=== PATIENT | male | born 1960 | race Caucasian/White ===

== ENCOUNTER 2016-11-11 06:11 | Day surgery (SDC) | payer MEDICARE ==
--- NOTE | 2016-11-09 19:42 | PCM.ANEPRE ---
Anesthesia Pre-Op Review Reason for Review: multiple co morbids Anesthesia Recommendations: Delay until Additional Data Obtain Additional Comments 55 y/o male with chronic wound of the right foot scheduled for split thickness skin grafting on 11/11/16. 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 H/o cardiac ablation for atrial flutter. Echo 04/14 showed EF 45-50%. Underwent I& D right foot on 09/03/16 under MAC and local by surgeon with no apparent issues. According to the records the patient went to the [facility] ED on 10/04/16 for orthostatic hypotension resulting in near syncope. He was sent home form the ED but Dr. Hicks with cardiology saw him and wanted him to be seen in clinic [facility]. I cannot find a followup cardiology note. As we do not know the patient's current cardiac status and the radiologic technologist chief wanted him evaluated it is prudent to wait until the patient is cleared by cardiology before surgery. As it is 7:40 PM I am unable to call Dr. Dominique office to ask how urgent this procedure is. Skin grafting is typically quite painful and requires more than MAC and local by the surgeon. Please delay surgery until the patient is assessed by cardiology. Chart Reviewed by: Yoseph Mchugh MD Nov 09, 2016 19:42
--- NOTE | 2016-11-10 12:25 | NUR ---
[facility] Wound Vac Approval Patient is approved for a [facility] home wound vac after surgery. Dr. Dominique will bring one to the OR for placement from the [facility]ound [facility].
[~2016-11-11] VITALS: Ht 182.9 cm; Wt 104.0 kg
[~2016-11-11 06:11] MED LIST: CeFAZolin Inj 2 GM in IV Premix 1 EACH IV ONE; INSLIS SUBQ; INSU100V7 SUBQ; Lactated Ringer's 1,000 ML IV ONE
[2016-11-11] MEDS ORDERED: fentaNYL-PF 50 mCg/mL 2 mL Inj ONE (06:12)
[2016-11-11] MEDS ORDERED: Propofol 10,000 mCg/mL 20 mL Inj ONE (06:12)
[2016-11-11] MEDS: Lactated Ringer's 1,000 ML IV SCH ×3 (06:33→08:23)
[2016-11-11 06:38] VITALS: BP 147/95; PULSE 96; RESP 17; O2SAT 100
[2016-11-11] MEDS ORDERED: WARF5TAB PO (06:44)
--- NOTE | 2016-11-11 07:14 | PCM.HPANE ---
Patient Data Surgeon Admitting Provider: Attending Provider:Shai Dominique DPM Primary Care Physician:Jefferson Hamilton MD Other Provider: Reason for Visit Chronic Wound Right Foot Ht/WT & BMI Height (Feet): 6 Height (Inches): 0 Weight (Kilograms): 104.0 Body Mass Index 31.00 Allergies Coded Allergies: gentamicin (Verified Allergy, Unknown, VERTIGO, 05/06/16) lisinopril (Verified Adverse Reaction, Unknown, 05/06/16) DRY COUGH Past Anesthesia History Anesthesia History: Denies:: Anesthesia Reactions, Fam Anesthesia Reaction, Fam Malignant Hypertherm, Malignant Hyperthermia Diabetes History Hx Diabetes?: Yes Type of Diabetes: Type II Glycemic Control: Insulin & Oral Medication Current Bedside Blood Glucose: 213 MRSA MRSA: No Medications Blood Thinner: Coumadin Last Dose Blood Thinner: Oct 26, 2016 Hypertension Medication: No Home Meds Incl Beta Neil: No Reported Medications Warfarin Sodium (Coumadin)5 Mg Tpiybs40 Mg PO DAILY #30 11/11/16 Insulin Human Lispro (HumaLOG U100 Insulin Vial)100 Unit/Ml Unit5-20 Unit SUBQ prn PRN blood sugar #1 VIAL Ref 0 Check blood sugars before meals and at bedtime. Use correction factor only before meals. Blood Sugar Lispro Correction: <151, 0 units; 151-175, 1 unit; 176-200, 2 units; 201-225, 3 units; 226-250, 4 units; 251-275, 5 units; 276-300, 6 units; 301-325, 7 units; 326-350, 8 units; 351-375, 9 units; 376-400, 10 units; >400, 12 units. 11/09/16 Insulin Glargine (Lantus U100 Insulin Vial)100 Unit/Ml Vial37 Unit SUBQ BID #1 VIAL Ref 0 11/09/16 Discontinued Reported Medications Ubidecarenone (Co Q-10)300 Mg Eplbnso702 Mg PO DAILY 09/03/16 Warfarin Sodium 10 Mg Drregg10 Mg PO DAILY 09/02/16 Insulin Glargine (Lantus U100 Solostar Insulin Pen)100 Unit/1 Ml Insuln.pen30 Unit SUBQ BID 09/02/16 Carvedilol 6.25 Mg Scxyaf12.5 Mg PO BID 03/11/16 Insulin Lispro (HumaLOG U100 Insulin Pen)100 Unit/1 Ml Insuln.pen Unit SUBQ TIDWM per sliding scale 08/11/14 Discontinued Scripts Metronidazole (Flagyl)500 Mg Uqxram600 Mg PO Q8H 35 Days Prov:Adolfo Hernandez DO 09/10/16 Ciprofloxacin (Cipro)500 Mg Cbxpma315 Mg PO q18 hours #46 TABLET Ref 0 take 1 tab orally every 18 hours for 5 weeks. Prov:Adolfo Hernandez DO 09/10/16 Bumetanide 1 Mg Tablet1 Mg PO 0830,16 30 Days Prov:Adolfo Hernandez DO 09/10/16 Atorvastatin Calcium 40 Mg Vsajoi60 Mg PO HS 30 Days Prov:Adolfo Hernandez DO 09/10/16 oxyCODONE 5 Mg Tablet5 Mg PO Q4H PRN For Moderate Pain #30 TABLET Prov:Nesha Owens MD 05/08/16 History History of ENT Problems?: No HEENT History: Denies:: Cataracts Dysphagia Hearing Problem Sinus Problem Hx of Heart Problems?: Yes Cardiovascular History: Positive for:: Cardiac Surgery (cardiac ablation in February 2016 for A-fib) Congestive Heart Failure (cardiac abaltion for A-fib) Edema Irregular Heartbeat (atrial fib with RVR with hospitalization 02/25) Denies:: Chest Pain Heart Murmur Hypertension Pacemaker Thrombophlebitis Hx of Respiratory Problem?: Yes Respiratory History: Positive for:: Dyspnea (exertional) Denies:: Asthma COPD Chest Surgery Emphysema Hemoptysis Oxygen Administration Pneumonia Tuberculosis Use of C-PAP Machine Hx Neurologic Problems?: Yes Neurological History: Positive for:: Dizziness (chronic vertigo) Headaches Denies:: Alzheimer's Disease CVA Dementia Multiple Sclerosis Parkinson's Disease Seizures Hx of GI Problems?: No Gastrointestinal History: Denies:: Cirrhosis Gastroesphageal Reflux Heartburn Hepatitis Hx of Problems?: No Genitourinary History: Denies:: HX of Hemodialysis Kidney Stones HX of Peritoneal Dialysis: No Male Hx: Denies:: Prostate Problems Scrotal Mass Testicular Surgery Skin History: Positive for:: History Skin Disorders? (diabetic wounds on feet reccurring) Denies:: Pressure Ulcers Hx Musculoskeletal Problems?: Yes Musculoskeletal History: Positive for:: Musculoskeletal Trauma (right foot non healing wound- current admission problem) Denies:: Back Injury Joint Replacement Osteoarthritis Hx of Psycho/Social Problems?: No Psycho Social History: Denies:: Anxiety Bipolar Disorder Hx Depression Suicide Attempt Hx Surgeries?: Yes (multiple foot surgeries for diabetic wounds, ) Hx Any Other Health Problems?: Yes Other History: Positive for:: Hospitalization (February 2016 Heart, a-nov; Jul 2015 diabetic ulcer) Denies:: Cancer Endocrine Disease Thyroid Disease History Blood Transfusions: Positive for:: Blood Transfusions Denies:: Blood Transfuse Reaction Hx Diabetes: YesBedside Blood Glucose: 213 Hx Alcohol Use: Yes (1 beer / month)Hx Substance Use: No Smoking Status: Never Smoker Have You Smoked inLast 12 mo: No Stop/Bang P-Blood Pressure: treated: No B- Body Mass Index > 35 kg/m2: No A- Age over 50: Yes N- Neck Large Circumference: No G- Gender Male: Yes CHRISSY Risk Assessment: Low Risk, <3 Yes Risk Assessment Category Category 1A: Patient has history of documented sleep apnea, and HAS NOT received any narcotic, sedative or anesthesia administration during this stay. Category 1B: Patient has history of documented sleep apnea, and HAS received any narcotic , sedative or anesthesia administration during this stay Category 2: Patient has SUSPECTED Obstructive Sleep Apnea, and HAS received any narcotic , sedative or anesthesia administration during this stay. Category 3: Patient has SUSPECTED Obstructive Sleep Apnea and HAS NOT received narcotic, sedative or anesthesia administration during this stay. Category 4: Outpatient in Procedural Areas with known sleep apnea or who screen positive for High Risk via the STOP/BANG questionnaire. Exam Exam Vital Signs Vital Signs Date Time Temp Pulse Resp B/P Pulse Ox O2 Delivery O2 Flow Rate FiO2 11/11/16 06:38 35.9 96 17 147/95 100 Room Air General Appearance: Alert, Oriented X3, Cooperative, No Acute Distress HEENT/AIRWAY: MP 2 Lungs: Clear to Auscultation, Normal Air Movement Heart: Exam Unremarkable, Regular Rate/Rhythm, No Murmurs/Rubs/Gallops Meds/Labs/Diagnostics Admission Meds Current Medications Lactated Ringer's (Lr) 1,000 ml @ 120 mls/hr Q8H20M IV Last administered on t 06:33; Start 11/11/16 at 05:00; Stop 11/11/16 at 13:19 Bedside Blood Glucose: 213 Plan Impression Patient chart reviewed, patient interviewed and anesthestic plan with risks, benefits, and alternatives discussed, and informed consent obtained. NPO Status: 11/10/161999 Anesthetic Plan: MAC Bene/Risks/Altern/Consents: Yes HP Complete Prior to Induction: Yes Carlotta Gonzalez MD Nov 11, 2016 07:14
[2016-11-11] MEDS ORDERED: Lactated Ringer's 1,000 ML IV SCH (07:59)
[2016-11-11] MEDS ORDERED: Lactated Ringer's 500 ML IV PRN (07:59)
[2016-11-11] MEDS ORDERED: Atropine 0.4 mg/mL Inj IVPUSH PRN (08:00)
[2016-11-11] MEDS ORDERED: MetoCLOpramide 5 mg/mL 2 mL Inj IVPUSH PRN (08:00)
[2016-11-11] MEDS ORDERED: Labetalol 5 mg/mL 4 mL Inj IV PRN (08:00)
[2016-11-11] MEDS ORDERED: Phenylephrine 10,000 mCg/mL Inj IVPUSH PRN (08:00)
[2016-11-11] MEDS ORDERED: Dexamethasone 4 mg/mL Inj IVPUSH PRN (08:00)
[2016-11-11] MEDS ORDERED: HYDROmorphone 1 mg/mL Inj IVPUSH PRN (08:00)
[2016-11-11] MEDS ORDERED: EPHEDrine Sulfate 50 mg/mL Inj IVPUSH PRN (08:00)
[2016-11-11] MEDS ORDERED: Ondansetron 2 mg/mL 2 mL Inj IVPUSH PRN (08:00)
[2016-11-11] MEDS ORDERED: fentaNYL-PF 50 mCg/mL 2 mL Inj IVPUSH PRN (08:00)
[2016-11-11] MEDS ORDERED: hydrALAZINE 20 mg/mL Inj IVPUSH PRN (08:00)
[2016-11-11] MEDS ORDERED: Lidocaine 1%-Epi 1:100,000 50 mL Inj INJ ONE (08:05)
[2016-11-11 08:58] VITALS: BP 159/88; PULSE 89; RESP 16; O2SAT 100
[2016-11-11 09:07] VITALS: BP 124/87; PULSE 89; RESP 16; O2SAT 98
--- NOTE | 2016-11-11 09:13 | PCM.ANEP1 ---
Post Anesthesia Phase 1 PACU Phase 1 Assessment Vital Signs Vital Signs Date Time Temp Pulse Resp B/P Pulse Ox O2 Delivery O2 Flow Rate FiO2 11/11/16 09:07 89 16 124/87 98 Room Air 11/11/16 08:58 36.1 89 16 159/88 100 Room Air 11/11/16 06:38 35.9 96 17 147/95 100 Room Air Anesthetic Administered: MAC Level of Alertness: Awake, talking MENDES's with Equal Strength: Yes Nausea or Vomiting: No Oxygen Delivery: Room Air Lungs: Clear to Auscultation, Normal Air Movement Carlotta Gonzalez MD Nov 11, 2016 09:13
--- NOTE | 2016-11-11 09:54 | PCM.ANEP2 ---
Post Anesthesia Evaluation ASA/CMS Post Anesthesia VS in Patient's Normal Range?: Yes Resp Stable; Airway Patent?: Yes CV Function & Hydration Stable: Yes Mental Status Recovered?: Yes Pain control Satisfactory?: Yes N/V Control Satisfactory?: Yes Carlotta Gonzalez MD Nov 11, 2016 09:54
--- NOTE | 2016-11-12 15:36 | OP ---
[address] [address] OPERATIVE REPORT PATIENT: SARAY FARAH : 1960 MR#: [id number] ADMIT: 11/11/2016 JOB ID: [id number] DATE OF SURGERY: 11/11/2016 SURGEON: Shai Dominique DPM PREOPERATIVE DIAGNOSIS(ES): Diabetic ulceration to the right foot. POSTOPERATIVE DIAGNOSIS(ES): Diabetic ulceration to the right foot. PLANNED PROCEDURE: Split-thickness auto skin graft from right calf to right foot. ANESTHESIA: Local and IV sedation. HEMOSTASIS: None. ESTIMATED BLOOD LOSS: Less than 5 mL. COMPLICATIONS: None. PROCEDURE AND FINDINGS: The patient was brought to the operating room and placed on the table in supine position. He was placed under IV sedation, after which I performed a superficial dermatome blockade of the anterior medial right calf. The right lower extremity was prepped and draped in the normal sterile surgical manner. Attention was directed to the plantar aspect of the right foot, where the wound was evaluated and found to be heavily and healthily granular. I used a #zero sharp dermal curette to prepare the surface, removing any biofilm and achieving a good bleeding base all way across the wound surface. This was then measured and the choice was made to secure a 13 x 5 cm split-thickness graft. The dermatome was set to 0.0018 and checked with feeler gauge. I then moistened the area with saline and harvested the graft. It was found to be of good thickness and health. I placed this through the mesher at a 1:1.5 ratio. This was then delivered to the graft recipient site on the foot. I secured it circumferentially with 4-0 Vicryl suture in a running interlocking fashion with minimal knots at the margin. Three anchoring knots placed evenly spaced across the wound face. I then addressed the proximal wound with Marcaine and epinephrine soaked Telfa and secured this with gauze. I placed a wound VAC with black foam directly over the graft recipient site, protecting all intact skin with under VAC drape. The VAC was activated at -125 mmHg pressure and found to be well sealed. No leaks were identified. I then further secured this with Kerlix roll, followed by Daniel bandages from MTPJ to tibial tuberosity, encompassing the graft donor site. The patient had immediate CFT to the forefoot throughout the procedure as no tourniquet was applied. He was transferred from the operating room in stable condition, having tolerated the procedure and anesthetic well. POSTOPERATIVE PLAN: The patient understand that he is to remain nonambulatory and nonweightbearing upon this limb. We did place him in an orthopedic boot. Should he accidentally place pressure on the foot. However, he does have a knee scooter, crutches, and other durable medical devices to provide him the ability to remain compliant. I also reminded him the great importance of maintaining and treating his blood pressure and his blood sugar. Of particular note is the importance of him being compliant with dietary recommendations in regard to his diabetes. He has in the past had very high blood sugars. He is reminded that blood sugars greater than 300 can cause the of the graft and that greater than 150 considerably reduces the statistical survival rate of peripheral skin grafts. His questions are answered. I provided him with after-hours contact information including my own personal cell phone. He will follow with me in the [facility]ound Center this coming Monday, scheduled at 10:30 a.m. My thanks to the surgical staff and anesthesia team for their expert assistance with this nice gentleman.
== END 2016-11-11 23:59 | disposition home or self-care (01) ==
LOC: SAS 06:11
PROVIDERS: ATTEND Podiatrist
DX: E11.621 Type 2 diabetes mellitus with foot ulcer (principal); L97.511 Non-pressure chronic ulcer of other part of right foot limited to breakdown of skin; I48.91 Unspecified atrial fibrillation; I50.9 Heart failure, unspecified; R51 Headache; R42 Dizziness and giddiness; Z79.4 Long term (current) use of insulin; Z79.01 Long term (current) use of anticoagulants; Z79.899 Other long term (current) drug therapy